=== PATIENT | male | born 1990 | race Caucasian/White ===

== ENCOUNTER 2019-01-07 15:33 | Emergency (ER) | payer SELFPAY ==
[~2019-01-07] VITALS: Ht 162.6 cm; Wt 61.0 kg
[2019-01-07] MEDS ORDERED: BACITRACIN ZINC OINT UDPKT TOP ONE ×2 (18:30→20:15)
[2019-01-07] MEDS ORDERED: HYDROCODONE/ACETAMINOPHEN 5/325MG TABLET PO ONE (18:30)
[2019-01-07] MEDS ORDERED: LIDOCAINE HCL/PF 1% 10 MG/ML 5ML VIAL IJ ONE (18:30)
[2019-01-07 19:00] VITALS: BP 99/58
== END 2019-01-07 20:57 | disposition home or self-care (01) ==
LOC: ER 15:33
DX: S60.511A Abrasion of right hand, initial encounter (principal); W45.8XXA Other foreign body or object entering through skin, initial encounter; Y93.89 Activity, other specified; Y92.098 Other place in other non-institutional residence as the place of occurrence of the external cause; Y99.8 Other external cause status
CPT/HCPCS: 73130; 99283